=== PATIENT | female | born 1985 | race Hispanic/Latino ===

== ENCOUNTER 2019-03-03 19:15 | Emergency (ER) | payer SELFPAY ==
[~2019-03-03] VITALS: Ht 154.9 cm; Wt 62.4 kg
[~2019-03-03 19:15] MED LIST: FERR SULFATE325 MG PO; IBUPROFEN600 MG PO; LORTAB 7.57.5 MG PO; MULTI-DA1 PO; NAPROSYN500 MG PO; NO; NORCO1 TA1 PO; PRENATAL1 TA1 PO
[2019-03-03 20:16] LABS: URINE BILIRUBIN - DIPSTICK NEGATIVE (NEGATIVE); URINE BLOOD DIPSTICK NEGATIVE (NEGATIVE); URINE COLOR YELLOW; URINE GLUCOSE - DIPSTICK NEGATIVE (NEGATIVE); URINE KETONE NEGATIVE (NEGATIVE); URINE LEUK ESTERASE NEGATIVE (NEGATIVE); URINE NITRITE - DIPSTICK NEGATIVE (Negative); URINE PH 7.5 (4.5-8.0); URINE PROTEIN - DIPSTICK NEGATIVE (NEG-TRACE); URINE SPECIFIC GRAVITY 1.015; URINE UROBILINOGEN - DIPSTICK 0.2 E.U./dL (0.2)
[2019-03-03 20:41] LABS: HEMATOCRIT 37.5 % (37.0-47.0); HEMOGLOBIN 12.5 g/dl (12.0-16.0); IMMATURE GRANULOCYTES 0.3 % (0.0-5.0); MEAN CELL VOLUME 89.7 fL CALC (80.0-100.0); MEAN CORPUSCULAR HGB 29.9 pG CALC (26.0-32.0); MEAN CORPUSCULAR HGB CONC 33.3 g/L CALC (32.0-36.0); NEUT# 3.18 thou/uL (2.00-7.15); RED BLOOD COUNT 4.18 mill/uL (4.20-5.60); RED CELL DISTRI WIDTH 12.1 % (11.5-15.5)
[2019-03-03 20:58] LABS: ALBUMIN 4.3 g/dL (3.2-5.0); ALKALINE PHOSPHATASE 88 u/l (38-126); AMYLASE 55 u/l (30-110); ANION GAP 15 (6-22 (CALC)); BILIRUBIN, TOTAL 0.4 mg/dL (0.0-1.4); BUN 19 mg/dL (7-17); BUN/CREATININE RATIO 35 (12-20 (CALC)); CARBON DIOXIDE 22 mmol/l (22-30); CHLORIDE 108 mmol/l (95-108); CREATININE 0.5 mg/dL (0.5-1.0); GFR > 60 ML/MIN (>=60 (CALC)); GFR FOR AFR.AMER. > 60 ML/MIN (>=60 (CALC)); LIPASE 112 u/l (23-300); POTASSIUM 3.8 mmol/l (3.5-5.1); SGOT/AST 22 u/l (14-36); SODIUM 141 mmol/l (137-146); TOTAL PROTEIN 7.2 g/dL (6.3-8.2)
[2019-03-03] MEDS ORDERED: PREVACID30 M3 PO (22:49)
[2019-03-03 23:40] VITALS: BP 117/73
== END 2019-03-03 23:40 | disposition home or self-care (01) | DRG 392 ==
LOC: ED 19:15
PROVIDERS: Emergency Medicine
DX: K29.70 Gastritis, unspecified, without bleeding (principal)
CPT/HCPCS: Q9967

== ENCOUNTER 2020-07-31 17:18 | Emergency (ER) | payer SELFPAY ==
[~2020-07-31] VITALS: Ht 154.9 cm; Wt 59.0 kg
[~2020-07-31 17:18] MED LIST changes: +PREVACID30 M3 PO
[2020-07-31] MEDS ORDERED: PRENATA7 PO (21:09)
[2020-07-31] MEDS ORDERED: LORTAB 5/3255 MG PO (21:22)
[2020-07-31 22:30] VITALS: BP 129/68
== END 2020-07-31 22:30 | disposition home or self-care (01) | DRG 833 ==
LOC: ED 17:18
PROC: 0RSLXZZ Reposition Right Elbow Joint, External Approach (ICD-10-PCS; principal; 2020-07-31)
DX: O9A.211 Injury, poisoning and certain other consequences of external causes complicating pregnancy, first trimester (principal); S53.104A Unspecified dislocation of right ulnohumeral joint, initial encounter; S50.311A Abrasion of right elbow, initial encounter; W01.0XXA Fall on same level from slipping, tripping and stumbling without subsequent striking against object, initial encounter; Y92.009 Unspecified place in unspecified non-institutional (private) residence as the place of occurrence of the external cause; Z3A.08 8 weeks gestation of pregnancy

== ENCOUNTER 2020-09-03 11:42 | Emergency (ER) | payer SELFPAY ==
[~2020-09-03] VITALS: Ht 154.9 cm; Wt 66.0 kg
[~2020-09-03 11:42] MED LIST changes: +LORTAB 5/3255 MG PO; +PRENATA7 PO
[2020-09-03 12:41] LABS: HEMOGLOBIN 13.6 g/dl (12.0-16.0); IMMATURE GRANULOCYTES 0.6 % (0.0-5.0); MEAN CELL VOLUME 89.4 fL CALC (80.0-100.0); MEAN CORPUSCULAR HGB 28.9 pG CALC (26.0-32.0); MEAN CORPUSCULAR HGB CONC 32.4 g/dL CAL (32.0-36.0); NEUT# 6.41 thou/uL (2.00-7.15); RED BLOOD COUNT 4.7 mill/uL (4.20-5.60); RED CELL DISTRI WIDTH 12.5 % (11.5-15.5); URINE BILIRUBIN - DIPSTICK NEGATIVE (NEGATIVE); URINE BLOOD DIPSTICK LARGE (NEGATIVE); URINE GLUCOSE - DIPSTICK NEGATIVE (NEGATIVE); URINE KETONE NEGATIVE (NEGATIVE); URINE LEUK ESTERASE NEGATIVE (NEGATIVE); URINE PROTEIN - DIPSTICK TRACE mg/dL (NEG-TRACE); URINE SPECIFIC GRAVITY <=1.005; URINE UROBILINOGEN - DIPSTICK 0.2 E.U./dL (0.2)
[2020-09-03 12:45] LABS: URINE COLOR PINK; URINE NITRITE - DIPSTICK NEGATIVE (Negative); URINE RBC 50-100 RBC/hpf (0-5)
[2020-09-03 12:51] LABS: ALBUMIN 4.7 g/dL (3.2-5.0); ALKALINE PHOSPHATASE 100 u/l (38-126); BILIRUBIN, TOTAL 0.7 mg/dL (0.0-1.4); BUN 4 mg/dL (7-17); BUN/CREATININE RATIO 9 (12-20 (CALC)); CARBON DIOXIDE 23 mmol/l (22-30); CHLORIDE 94 mmol/l (95-108); CREATININE 0.5 mg/dL (0.5-1.0); GFR > 60 ML/MIN (>=60 (CALC)); GFR FOR AFR.AMER. > 60 ML/MIN (>=60 (CALC)); POTASSIUM 3.2 mmol/l (3.5-5.1); TOTAL PROTEIN 8.4 g/dL (6.3-8.2)
[2020-09-03 13:08] LABS: BETA-HCG, QUANT(RESULT NUMBER) 2430 mIU/mL
[2020-09-03 13:09] LABS: ANION GAP 15 (6-22 (CALC)); SGOT/AST 51 u/l (14-36); SODIUM 129 mmol/l (137-146)
[2020-09-03 15:15] VITALS: BP 140/85
== END 2020-09-03 16:00 | disposition short-term general hospital (02) | DRG 779 ==
LOC: ED 11:42
PROVIDERS: Emergency Medicine
DX: O03.4 Incomplete spontaneous abortion without complication (principal)

== ENCOUNTER 2021-03-03 08:39 | Observation (INO) | payer SELFPAY ==
[~2021-03-03] VITALS: Ht 154.9 cm; Wt 64.0 kg
--- NOTE | 2021-03-03 08:39 | NUR ---
PATIENT AMBULATORY TO ROOM 9. BEDSIDE TRIAGE COMPLETED
[2021-03-03 09:23] LABS: HEMATOCRIT 44.5 % (37.0-47.0); HEMOGLOBIN 14.2 g/dl (12.0-16.0); IMMATURE GRANULOCYTES 0.1 % (0.0-5.0); MEAN CELL VOLUME 91.9 fL CALC (80.0-100.0); MEAN CORPUSCULAR HGB 29.3 pG CALC (26.0-32.0); MEAN CORPUSCULAR HGB CONC 31.9 g/dL CAL (32.0-36.0); NEUT# 4.09 thou/uL (2.00-7.15); RED BLOOD COUNT 4.84 mill/uL (4.20-5.60); RED CELL DISTRI WIDTH 12.3 % (11.5-15.5)
[2021-03-03 09:40] LABS: BUN 14 mg/dL (7-17); BUN/CREATININE RATIO 31 (12-20 (CALC)); CARBON DIOXIDE 21 mmol/l (22-30); CHLORIDE 104 mmol/l (95-108); CREATININE 0.4 mg/dL (0.5-1.0); GFR > 60 ML/MIN (>=60 (CALC)); GFR FOR AFR.AMER. > 60 ML/MIN (>=60 (CALC)); SODIUM 137 mmol/l (137-146)
[2021-03-03 09:48] LABS: ANION GAP 17 (6-22 (CALC)); POTASSIUM 4.8 mmol/l (3.5-5.1)
--- NOTE | 2021-03-03 10:28 | NUR ---
MD AT BEDSIDE TO DISCUSS RESULTS AND POC.
--- NOTE | 2021-03-03 11:25 | NUR ---
RESTING QUIETLY, DENIES PAIN AT THIS TIME.
--- NOTE | 2021-03-03 12:22 | NUR ---
DENIES NEEDS AT THIS TIME.
--- NOTE | 2021-03-03 13:18 | NUR ---
DR LAL AT BEDSIDE TO DISCUSS RESULTS AND POC.
--- NOTE | 2021-03-03 14:00 | NUR ---
PT RESTING IN BED AT THIS TIME. NO APPARENT DISTRESS NOTED. PT DENIES ANY PAIN OR DISCOMFORT. CALL LIGHT WITHIN REACH. WILL CONTINUE TO MONITOR.
--- NOTE | 2021-03-03 16:39 | NUR ---
RESTING QUIETLY, DENIES NEEDS
--- NOTE | 2021-03-03 18:13 | NUR ---
PT RESTING IN BED WITH EYES CLOSED. NO APPARENT DISTRESS NOTED. RESPIRATIONS EVEN AND UNLABORED. CALL LIGHT WITHIN REACH. WILL CONTINUE TO MONITOR.
[2021-03-03 18:23] VITALS: BP 158/80
--- NOTE | 2021-03-03 19:21 | NUR ---
D/C instructions given with verbalization of understanding. Pt. discharged home in stable condition.
== END 2021-03-03 19:30 | disposition home or self-care (01) | DRG 313 ==
LOC: ED 08:39 → ED-I 10:35 → ED 13:38 → ED-I 13:39
PROVIDERS: Family Medicine; ADMIT Hospitalist; ATTEND Hospitalist
DX: R07.9 Chest pain, unspecified (principal); F41.9 Anxiety disorder, unspecified

== ENCOUNTER 2021-12-15 10:18 | Emergency (ER) | payer SELFPAY ==
[2021-12-15] VITALS (13 sets, daily range): BP systolic 115–149; BP diastolic 62–102
[~2021-12-15] VITALS: Ht 154.9 cm; Wt 70.0 kg
[2021-12-15 11:11] LABS: HEMOGLOBIN 12.4 g/dl (12.0-16.0); IMMATURE GRANULOCYTES 0.4 % (0.0-5.0); MEAN CELL VOLUME 89.1 fL CALC (80.0-100.0); MEAN CORPUSCULAR HGB 29.3 pG CALC (26.0-32.0); MEAN CORPUSCULAR HGB CONC 32.9 g/dL CAL (32.0-36.0); NEUT# 5.87 thou/uL (2.00-7.15); RED BLOOD COUNT 4.23 mill/uL (4.20-5.60); RED CELL DISTRI WIDTH 12.9 % (11.5-15.5)
[2021-12-15 11:12] LABS: HEMATOCRIT 37.7 % (37.0-47.0)
[2021-12-15 11:20] LABS: ALBUMIN 4.1 g/dL (3.2-5.0); ALKALINE PHOSPHATASE 77 u/l (38-126); ANION GAP 11 (6-22 (CALC)); BILIRUBIN, TOTAL 0.3 mg/dL (0.0-1.4); BUN 7 mg/dL (7-17); BUN/CREATININE RATIO 19 (12-20 (CALC)); CARBON DIOXIDE 22 mmol/l (22-30); CHLORIDE 105 mmol/l (95-108); CREATININE 0.4 mg/dL (0.5-1.0); GFR FOR AFR.AMER. > 60 ML/MIN (>=60 (CALC)); GFR OTHER RACES > 60 ML/MIN (>=60 (CALC)); LIPASE 73 u/l (23-300); POTASSIUM 3.6 mmol/l (3.5-5.1); SGOT/AST 19 u/l (14-36); SODIUM 134 mmol/l (137-146); TOTAL PROTEIN 7.1 g/dL (6.3-8.2)
[2021-12-15 11:20] LABS: URINE BILIRUBIN - DIPSTICK NEGATIVE (NEGATIVE); URINE BLOOD DIPSTICK NEGATIVE (NEGATIVE); URINE COLOR YELLOW; URINE GLUCOSE - DIPSTICK NEGATIVE (NEGATIVE); URINE KETONE TRACE mg/dL (NEGATIVE); URINE LEUK ESTERASE NEGATIVE (NEGATIVE); URINE PROTEIN - DIPSTICK NEGATIVE (NEG-TRACE); URINE UROBILINOGEN - DIPSTICK 0.2 E.U./dL (0.2)
[2021-12-15 11:24] LABS: URINE NITRITE - DIPSTICK NEGATIVE (Negative)
== END 2021-12-15 13:56 | disposition home or self-care (01) | DRG 833 ==
LOC: ED 10:18
PROVIDERS: Family Medicine
DX: O26.891 Other specified pregnancy related conditions, first trimester (principal); R10.30 Lower abdominal pain, unspecified; Z3A.12 12 weeks gestation of pregnancy